=== PATIENT | male | born 1985 | race Two or more races ===

== ENCOUNTER 2022-07-08 21:19 | Emergency (ER) | payer OTHER ==
--- NOTE | 2022-07-08 22:51 | ED Physician Documentation ---
PD HPI URI - Stated complaint Stated Complaint: COUGH - Chief complaint Chief Complaint: Resp - History obtained from History obtained from: Patient - History of Present Illness Timing - onset: How many weeks ago (1) Timing duration: Weeks (1) Timing details: Abrupt onset (at onset, he had congestion, cough, fever and nausea. Most symptoms improved, but still with harsh cough to point of nearly vomiting.), Still present Associated symptoms: Fever, Nasal congestion, Rhinorrhea, Dry cough Contributing factors: No: Sick contact, Immunocompromised, COPD / asthma Similar symptoms before: Has not had sx before Recently seen: Not recently seen Review of Systems Constitutional: reports: Fever (1 week ago for few days, improved) Nose: reports: Rhinorrhea / runny nose, Congestion Cardiac: reports: Chest pain / pressure (due to coughing). denies: Palpitations, Pedal edema, Calf pain Respiratory: reports: Dyspnea, Cough. denies: Wheezing GI: denies: Vomiting, Diarrhea Neurologic: reports: Headache. denies: Focal weakness, Numbness, Near syncope, Confused, Altered mental status PD PAST MEDICAL HISTORY - Past Medical History Cardiovascular: None Respiratory: None Neuro: None Endocrine/Autoimmune: None - Present Medications Home Medications: Ambulatory Orders Medication Instructions Recorded Confirmed Albuterol Sulf [Ventolin Hfa 2 puffs INH Q4HR PRN #1 each 07/08/22 Inhaler] Benzonatate [Tessalon] 100 mg PO TID PRN #20 cap 07/08/22 dexAMETHasone [Decadron] 4 mg PO DAILY 3 Days #3 tablet 07/08/22 guaiFENesin LIQUID [Robitussin 100 mg PO Q6H PRN #120 ml 07/08/22 Liquid] - Allergies Allergies/Adverse Reactions: Allergies Allergy/AdvReac Type Severity Reaction Status Date / Time No Known Drug Allergies Allergy Verified 07/08/22 21:25 PD ED PE NORMAL - Vitals Vital signs reviewed: Yes - General General: Alert and oriented X 3, No acute distress (texting on phone. Alert and conversant. No guarding of neck ROM. ), Well developed/nourished - HEENT HEENT: Pharynx benign - Neck Neck: Supple, no meningeal sign, No bony TTP, No adenopathy - Cardiac Cardiac: RRR, No murmur - Respiratory Respiratory: Clear bilaterally - Abdomen Abdomen: Soft, Non tender - Derm Derm: Normal color, Warm and dry - Extremities Extremities: No edema, No calf tenderness / cord - Neuro Neuro: Alert and oriented X 3, No motor deficit, Normal speech Results - Vitals Vitals: Oxygen O2 Source Room air PD MEDICAL DECISION MAKING - ED course Complexity details: considered differential (Alert with supple neck does not look toxic. Despite headache and viral syndrome, he does not look like someone with meningitis/encephalitis. Sounds like persisting cough with possible RSV type illness that is improving generally though cough persists.), d/w patient Departure - Departure Disposition: 01 Home, Self Care Clinical Impression: Persistent cough Upper respiratory infection Qualifiers: URI type: unspecified URI Qualified Code(s): J06.9 - Acute upper respiratory infection, unspecified Condition: Stable Record reviewed to determine appropriate education?: Yes Follow-Up: [facility] Osorio [Provider Group] Prescriptions: Albuterol Sulf [Ventolin Hfa Inhaler] 2 puffs INH Q4HR PRN #1 each PRN Reason: Shortness Of Air/Wheezing dexAMETHasone [Decadron] 4 mg PO DAILY 3 Days #3 tablet guaiFENesin LIQUID [Robitussin Liquid] 100 mg PO Q6H PRN #120 ml PRN Reason: Cough Benzonatate [Tessalon] 100 mg PO TID PRN #20 cap PRN Reason: Cough Comments: This does sound likely to be a viral upper respiratory infection with some involvement in the bronchioles. The character of your illness and cough sound suggestive of a virus called RSV. It could be some other viral illness as a cause cough as well. The bronchial inflammation and cough can often persist for several weeks beyond the time of illness/active infection. We typically try to target it with opening the airways and reducing congestion and less cough triggering. I wrote prescriptions for combination of albuterol inhaler 2 to 3 puffs 3-4 times daily to help with breathing and cough. Decadron steroid daily for 3 more days to help with inflammation of the bronchioles. To that add benzonatate to help with cough suppression and guaifenesin to help with congestion. I sent these prescriptions to [facility] in [place]. Discharge Date/Time: 07/09/22 00:03
[2022-07-08] MEDS ORDERED: DEXAMETHASONE 10 MG/ML VIAL PO STA (23:26)
[2022-07-08] MEDS ORDERED: CHERRY SYRUP 10 ML UDC PO ONE (23:26)
[2022-07-08] MEDS ORDERED: guaiFENesin 100 MG/5 ML UDC PO STA (23:26)
[2022-07-08] MEDS ORDERED: BENZONATATE 100 MG CAPSULE PO STA (23:26)
[2022-07-08] MEDS ORDERED: ALBUTEROL 1 PUFF INH STA (23:26)
[2022-07-08 23:50] VITALS: BP 115/84
== END 2022-07-09 00:03 | disposition home or self-care (01) ==
LOC: ED 21:19
DX: J06.9 Acute upper respiratory infection, unspecified (principal)
CPT/HCPCS: 94640; 94664; 99282; 99284; A9270